=== PATIENT | female | born 1980 | race Caucasian/White ===

== ENCOUNTER 2023-02-03 23:43 | Emergency (ER) | payer OTHER ==
[~2023-02-03] VITALS: Ht 170.2 cm; Wt 158.0 kg
[~2023-02-03 23:43] MED LIST: METHADONE10 M1 PO; ZOFRAN4 MG/TAB PO
[2023-02-04] MEDS ORDERED: BACTRIM DS1 TAB PO (00:46)
[2023-02-04 00:50] VITALS: BP 132/81
[2023-02-04] MEDS ORDERED: DIFLUCAN150 MG PO (00:57)
== END 2023-02-04 00:59 | disposition home or self-care (01) ==
LOC: ED 23:43
DX: N75.8 Other diseases of Bartholin's gland (principal); E11.9 Type 2 diabetes mellitus without complications; J45.909 Unspecified asthma, uncomplicated